=== PATIENT | female | born 2000 | race Caucasian/White ===

== ENCOUNTER 2020-07-05 22:05 | Emergency (ER) | payer MEDICAID ==
[~2020-07-05] VITALS: Ht 167.6 cm; Wt 83.8 kg
[2020-07-05] MEDS ORDERED: KETOROLAC 60MG/2ML VIAL IM ONE (23:15)
[2020-07-06 00:05] VITALS: BP 123/67
== END 2020-07-06 00:21 | disposition home or self-care (01) ==
LOC: EDSEX 22:05 → ER 22:05
DX: R20.0 Anesthesia of skin (principal); R03.0 Elevated blood-pressure reading, without diagnosis of hypertension
CPT/HCPCS: 81025; 82962; 93005; 96372; 99283; J1885

== ENCOUNTER 2020-07-24 07:12 | Emergency (ER) | payer MEDICAID ==
[~2020-07-24] VITALS: Ht 170.2 cm; Wt 80.0 kg
[2020-07-24 07:23] VITALS: BP 144/97
[2020-07-24] MEDS ORDERED: METOCLOPRAMIDE HCL 10MG/2ML VIAL IM ONE (07:45)
[2020-07-24] MEDS ORDERED: KETOROLAC 60MG/2ML VIAL IM ONE (07:45)
[2020-07-24] MEDS ORDERED: AMOX-424 MT (07:49)
[2020-07-24] MEDS ORDERED: IBUP-2030 MT (07:50)
[2020-07-24] MEDS ORDERED: METO-293 MT (07:50)
[2020-07-24] MEDS ORDERED: IBUPROFEN 800MG TABLET PO ONE (08:00)
[2020-07-24] MEDS ORDERED: METOCLOPRAMIDE HCL 10MG TABLET PO ONE (08:00)
== END 2020-07-24 18:42 | disposition home or self-care (01) ==
LOC: ER 07:22
DX: H66.91 Otitis media, unspecified, right ear (principal); R51.9 Headache, unspecified
CPT/HCPCS: 99283; J8597